=== PATIENT | male | born 1990 | race Caucasian/White ===

== ENCOUNTER 2016-11-29 11:00 | Day surgery (SDC) | payer OTHER ==
[~2016-11-29 11:00] MED LIST: ACETAMINOPHEN 1,000 MG/100 ML 100 ML IV ONE; CELECOXIB 100 MG CAPSULE PO ONE; ceFAZolin 2 GM/50 ML 50 ML IV ONE
[2016-11-29] MEDS ORDERED: LACTATED RINGERS 1,000 ML IV ONE (11:30)
[2016-11-29] MEDS ORDERED: ACETAMINOPHEN 1,000 MG/100 ML VIAL IV ONE (13:40)
[2016-11-29] MEDS ORDERED: PROPOFOL 200 MG/20 ML VIAL IVP ONE (13:40)
[2016-11-29] MEDS ORDERED: ONDANSETRON 4 MG/2 ML VIAL IVP ONE (13:40)
[2016-11-29] MEDS ORDERED: MIDAZOLAM 2 MG/2 ML VIAL IVP ONE (13:40)
[2016-11-29] MEDS ORDERED: DEXAMETHASONE 4 MG/ML VIAL IVP ONE (13:40)
[2016-11-29] MEDS ORDERED: LIDOCAINE-MPF 2% 5 ML VIAL IM ONE (13:40)
[2016-11-29] MEDS ORDERED: fentaNYL 100 MCG/2 ML VIAL IVP ONE (13:40)
[2016-11-29] MEDS: fentaNYL 100 MCG/2 ML VIAL ONE ×2 (16:32→16:50)
[2016-11-29] MEDS ORDERED: oxyCOD/ACETAMIN 5 MG/325 MG TABLET PO ONE (17:10)
[2016-11-29] MEDS ORDERED: fentaNYL 100 MCG/2 ML VIAL ONE (17:32)
[2016-11-29] MEDS ORDERED: ONDANSETRON 4 MG/2 ML VIAL ONE (18:27)
== END 2016-11-29 11:01 | disposition home or self-care (01) ==
PROC: 0SQD4ZZ Repair Left Knee Joint, Percutaneous Endoscopic Approach (ICD-10-PCS; 2016-11-29)
PROC: 0MUP47Z Supplement Left Knee Bursa and Ligament with Autologous Tissue Substitute, Percutaneous Endoscopic Approach (ICD-10-PCS; principal; 2016-11-29 12:25)
DX: S83.512A Sprain of anterior cruciate ligament of left knee, initial encounter (principal); S83.242A Other tear of medial meniscus, current injury, left knee, initial encounter; X50.1XXA Overexertion from prolonged static or awkward postures, initial encounter; Y93.51 Activity, roller skating (inline) and skateboarding; Z87.891 Personal history of nicotine dependence; K21.9 Gastro-esophageal reflux disease without esophagitis
CPT/HCPCS: 29882; 29888; 73560; A9270; J0131; J0690; J7120